=== PATIENT | male | born 1960 | race Caucasian/White ===

== ENCOUNTER 2016-12-02 23:32 | Emergency (ER) | payer SELFPAY ==
[~2016-12-02] VITALS: Ht 177.8 cm; Wt 63.5 kg
[2016-12-02] MEDS ORDERED: 0.9 % SODIUM CHLORIDE 10 ML DISP.SYRIN. IV PRN (23:45)
[2016-12-02] MEDS ORDERED: IV NORMAL SALINE 1,000ML 1,000 ML IV SCH (23:45)
--- NOTE | 2016-12-02 23:57 | PHYS DOC ---
Past History Past Medical History: CAD, Hypertension, Lung Disease Additional Past Medical Histor: he has suffered from anaphylaxis, sepsis Additional Past Surgical Histo: hernia repair, local excision and drainage of a infected abscess, tracheost Smoking: Cigarettes, Greater than 1 pack/day Alcohol Use: Sober Drug Use: None Adult General Chief Complaint Chief Complaint: possible stroke HPI HPI She is a pleasant 56-year-old male with a history of hypertension, hyperlipidemia, prior STEMI with stenting presents with weakness in his right upper and right lower extremity and some difficulty speaking. This patient awoke late this morning around 11 AM noticed some weakness and his upper extremity on the right and mild difficulty speaking. He had a little nausea without headache, no change in vision no change in memory with the symptoms are gone progressively worse over the course of the last 12 hours. She denies any specific trauma, denies any prior history of same. Patient denies any change in medications. ~Smoke 2 packs a day and does not drink alcohol anymore like he did. Patient says that he just felt as the symptoms got progressively worse over the course of the day. Patient denies any back pain, chest pain, shortness of breath, abdominal pain other than the nausea. He denies any vomiting, fevers , chills, URI symptoms or diarrhea. Review of Systems Review of Systems Constitutional: Denies fever or chills [] Eyes: Denies change in visual acuity, redness, or eye pain [] HENT: Denies nasal congestion or sore throat [] Respiratory: Denies cough or shortness of breath [] Cardiovascular: No additional information not addressed in HPI [] GI: Denies abdominal pain vomiting, bloody stools or diarrhea he has some nausea [] : Denies dysuria or hematuria [] Musculoskeletal: Denies back pain or joint pain [] Integument: Denies rash or skin lesions [] Neurologic: Denies headache, he has focal weakness of the right upper and right lower extremity without sensory change. He has difficulty speaking. Endocrine: Denies polyuria or polydipsia [] Physical Exam Physical Exam Vital signs chart on this chart demonstrated a blood pressure 155/93 heart rate was Constitutional: Well developed, well nourished, patient is mildly cachectic nontoxic in appearance. HENT: Normocephalic, atraumatic, bilateral external ears normal, mild dry mucous membranes, no oral exudates, nose normal. [] Eyes: PERRLA, EOMI, conjunctiva normal, no discharge. [] Neck: Normal range of motion, no tenderness, supple, no stridor. [] Cardiovascular:Heart rate regular rhythm, no murmur [] Lungs & Thorax: Bilateral breath sounds clear to auscultation [] Abdomen: Bowel sounds normal, soft, no tenderness, no masses, no pulsatile masses. [] Skin: Warm, dry, no erythema, no rash. [] Back: No tenderness, no CVA tenderness. [] Extremities: No tenderness, no cyanosis, no clubbing, ROM intact, no edema. [] Neurologic: Alert and oriented X 3, normal sensory function, no focal deficits noted. he demonstrates weakness in the right upper and right lower extremity. He has some ataxia and that right upper and right lower extremity as well. He does demonstrate some dysarthria [] Psychologic: Affect normal, judgement normal, mood normal. [] This patient's stroke scale on upon arrival was scored a 6 as found below 1a. Level of consciousness: 0 = Alert; keenly responsive. 1 = Not alert; but arousable by minor stimulation to obey, answer, or respond. 2 = Not alert; requires repeated stimulation to attend, or is obtunded and requires strong or painful stimulation to make movements (not stereotyped). 3 = Responds only with reflex motor or autonomic effects or totally unresponsive , flaccid, and areflexic. 1b. LOC questions: 0 = Answers both questions correctly. 1 = Answers one question correctly. 2 = Answers neither question correctly. 1c. LOC commands: 0 = Performs both tasks correctly. 1 = Performs one task correctly. 2 = Performs neither task correctly. 2. Best gaze: 0 = Normal. 1 = Partial gaze palsy; gaze is abnormal in one or both eyes, but forced deviation or total gaze paresis is not present. 2 = Forced deviation, or total gaze paresis not overcome by the oculocephalic maneuver. 3. Visual: 0 = No visual loss. 1 = Partial hemianopia. 2 = Complete hemianopia. 3 = Bilateral hemianopia (blind including cortical blindness). 4. Facial palsy: 0 = Normal symmetrical movements. 1 = Minor paralysis (flattened nasolabial fold, asymmetry on smiling). 2 = Partial paralysis (total or near-total paralysis of lower face). 3 = Complete paralysis of one or both sides (absence of facial movement in the upper and lower face). 5. Motor arm: 0 = No drift; limb holds 90 (or 45) degrees for full 10 seconds. 1 = Drift; limb holds 90 (or 45) degrees, but drifts down before full 10 seconds ; does not hit bed or other support. 2 = Some effort against gravity; limb cannot get to or maintain (if cued) 90 ( or 45) degrees, drifts down to bed, but has some effort against gravity. 3 = No effort against gravity; limb falls. 4 = No movement. UN = Amputation or joint fusion, explain: 5a. Left arm 5b. Right arm 1 6. Motor le = No drift; leg holds 30-degree position for full 5 seconds. 1 = Drift; leg falls by the end of the 5-second period but does not hit bed. 2 = Some effort against gravity; leg falls to bed by 5 seconds, but has some effort against gravity. 3 = No effort against gravity; leg falls to bed immediately. 4 = No movement. UN = Amputation or joint fusion, explain: 6a. Left leg 6b. Right leg 1 7. Limb ataxia: 0 = Absent. 1 = Present in one limb. 2 = Present in two limbs. UN = Amputation or joint fusion 8. Sensory: 0 = Normal; no sensory loss. 1 = Mrtx-fu-ncwbfjer sensory loss; patient feels pinprick is less sharp or is dull on the affected side; or there is a loss of superficial pain with pinprick , but patient is aware of being touched. 2 = Severe to total sensory loss; patient is not aware of being touched in the face, arm, and leg. 9. Best language: 0 = No aphasia; normal. 1 = Lclt-qg-ycicdeyk aphasia; some obvious loss of fluency or facility of comprehension, without significant limitation on ideas expressed or form of expression. Reduction of speech and/or comprehension, however, makes conversation about provided materials difficult or impossible. For example, in conversation about provided materials, examiner can identify picture or naming card content from patient's response. 2 = Severe aphasia; all communication is through fragmentary expression; great need for inference, questioning, and guessing by the listener. Range of information that can be exchanged is limited; listener carries burden of communication. Examiner cannot identify materials provided from patient response. 3 = Mute, global aphasia; no usable speech or auditory comprehension. 10. Dysarthria: 0 = Normal. 1 = Jymy-dk-ewpwdfyw dysarthria; patient slurs at least some words and, at worst , can be understood with some difficulty. 2 = Severe dysarthria; patient's speech is so slurred as to be unintelligible in the absence of or out of proportion to any dysphasia, or is mute/anarthric. UN = Intubated or other physical barrier, explain: 11. Extinction and inattention (formerly neglect): 0 = No abnormality. 1 = Visual, tactile, auditory, spatial, or personal inattention or extinction to bilateral simultaneous stimulation in one of the sensory modalities. 2 = Profound justa-inattention or extinction to more than one modality; does not recognize own hand or orients to only one side of space. Current Patient Data Vital Signs Vital Signs Date Time Temp Pulse Resp B/P (MAP) Pulse Ox O2 Delivery O2 Flow Rate FiO2 12/02/16 23:50 98.2 56 155/93 (113) 95 Room Air Vital Signs Date Time Temp Pulse Resp B/P (MAP) Pulse Ox O2 Delivery O2 Flow Rate FiO2 12/02/16 23:50 98.2 56 155/93 (113) 95 Room Air Lab Results Laboratory Tests Test 12/02/16 23:52 White Blood Count 9.5 x10^3/uL (4.0-11.0) Red Blood Count 4.39 x10^6/uL (4.30-5.70) Hemoglobin 13.1 g/dL (13.0-17.5) Hematocrit 39.2 % (39.0-53.0) Mean Corpuscular Volume 89 fL (79-100) Mean Corpuscular Hemoglobin 30 pg (25-35) Mean Corpuscular Hemoglobin Concent 34 g/dL (31-37) Red Cell Distribution Width 14.4 % (11.5-14.5) Platelet Count 207 x10^3/uL (140-400) Neutrophils (%) (Auto) 61 % (31-73) Lymphocytes (%) (Auto) 28 % (24-48) Monocytes (%) (Auto) 7 % (0-9) Eosinophils (%) (Auto) 3 % (0-3) Basophils (%) (Auto) 1 % (0-3) Neutrophils # (Auto) 5.8 x10^3uL (1.8-7.7) Lymphocytes # (Auto) 2.7 x10^3/uL (1.0-4.8) Monocytes # (Auto) 0.7 x10^3/uL (0.0-1.1) Eosinophils # (Auto) 0.3 x10^3/uL (0.0-0.7) Basophils # (Auto) 0.1 x10^3/uL (0.0-0.2) EKG EKG [] EKG timed 11:49 PM 12/02/[address] Dowd demonstrates normal sinus rhythm with frequent PVCs patient has a Q-wave in lead 1 which is likely secondary to his old lateral infarct are no new changes consistent with acute coronary ischemia. Radiology/Procedures Radiology/Procedures [] Course & Med Decision Making Course & Med Decision Making Pertinent Labs and Imaging studies reviewed. (See chart for details) Impression presents with strokelike symptoms that began about 11 AM this morning. It is now 11 PM this 12 are appear to time puts him outside the window necessary to treat him acutely with TPA. That is the only contra indication at this time is the duration of symptoms. Patient's stroke scale on arrival was 6 based on initial presentation and symptoms. Swallow study was completed by nursing staff at the bedside. Patient CT scan read at approximately 11:50 PM by radiology and reviewed by me demonstrated no occult bleed, edema, or other mass lesion in the brain. Patient EKG although abnormal was not showing any signs of ischemia. Patient will need to be admitted to the hospital time is now 11:55 PM Gas System Operator note: call specialist physician patient initially at 12:02 AM Gas System Operator called at of the service internal medicine service Consult called back at all back at 1204 AM Discussed the case I presented and they agreed with admission. But he asked that I transfer this patient to [facility] to arrange MRI evaluation and neurology consultation Only then that I realize after speaking with the on-call physician that I should 've been speaking to Dr. Peralta as this is one of his patients. Disposition would still be the same need for an MRI and emergent echocardiogram is very appropriate Gas System Operator note: Internal medicine physician forest economics professor Dr. Batista Gas System Operator called at of the service call the service initially at 12:15 AM Consult called back at 12:55 am Discussed the case I presented and they agreed with admission. Time of acceptance 12:55 a.m. My differential includes but not limited to: Neurally mediated vasovagal syncope, situational syncope, cardiac sinus syncope , orthostatic hypertension, medications, psychiatric interventions, neurologic syncope, cardiogenic syncopal B, to include organic heart disease congestive heart failure, cardiac dysrhythmia, seizure disorder, stroke or transient ischemic attack, bradycardia dysrhythmias, tachycardia dysrhythmias, PT, V. fib V. fib, cardiac abnormalities like first degree secondary third-degree AV blocks , prolonged QT, hypertrophic Matthew myopathy, severe pulmonic stenosis, pulmonary arterial hypertension, atrial myxomas, aortic stenosis, valvular failure, alcohol consumption, adrenal insufficiency, drug effects from things like antidepressants, antihypertensive agents like beta blockers, vasodilators including calcium channel blockers and nitrates, autonomic insufficiency. Because of patient's need for further imaging and evaluation by a neurologist he 'll need to be transferred to [facility] for these other imaging modalities. Completed. Patient's initial CBC is normal and reviewed by me Dr. Dowd []I spent approximately 45-50 minutes working and engaged directly in the patient care providing critical care evaluation this includes but not limited to time spent engaged in work directly related to the individual patients care. I spent time at the bedside, reviewing test results, discussing the case with staff, documenting the medical record and time spent with EMS discussing specific treatment issues when the patient presented and during his evaluation. Dragon Disclaimer Dragon Disclaimer This chart was dictated in whole or in part using Voice Recognition software in a busy, high-work load, and often noisy Emergency Department environment. It may contain unintended and wholly unrecognized errors or omissions. Departure Departure: Impression: Primary Impression: Stroke Additional Impression: Hypertension Disposition: XFER SHT-TRM HOSP Condition: GUARDED Problem Qualifiers JAIME DOWD MD Dec 02, 2016 23:57
[2016-12-03 00:04] LABS: BASO # 0.1 x10^3/uL (0.0-0.2); BASO % 1 % (0-3); EOS # 0.3 x10^3/uL (0.0-0.7); EOS % 3 % (0-3); HEMATOCRIT 39.2 % (39.0-53.0); HEMOGLOBIN 13.1 g/dL (13.0-17.5); LYMPH # 2.7 x10^3/uL (1.0-4.8); LYMPH % 28 % (24-48); MEAN CORPUSCULAR HEMOGLOBIN 30 pg (25-35); MEAN CORPUSCULAR HGB CONC 34 g/dL (31-37); MEAN CORPUSCULAR VOLUME 89 fL (79-100); MONO # 0.7 x10^3/uL (0.0-1.1); MONO % 7 % (0-9); NEUT # 5.8 x10^3uL (1.8-7.7); NEUT % 61 % (31-73); PLATELET COUNT 207 x10^3/uL (140-400); RED BLOOD COUNT 4.39 x10^6/uL (4.30-5.70); RED CELL DISTRIBUTION WIDTH 14.4 % (11.5-14.5); WHITE BLOOD COUNT 9.5 x10^3/uL (4.0-11.0)
--- NOTE | 2016-12-03 00:14 | RAD ---
INDICATION: [id number] Stroke protocol: Right sided weakness, difficulty concentrating, confusion tonight. No priors. COMPARISON: None. TECHNIQUE: Axial CT images obtained through the head without intravenous contrast. One or more of the following individualized dose reduction techniques were utilized for this examination: 1. Automated exposure control; 2. Adjustment of the mA and/or kV according to patient size; 3. Use of iterative reconstruction technique. FINDINGS: No intracranial hemorrhage. No midline shift. Basal cisterns patents. Ventricles and sulci are globally prominent. No acute osseous abnormality. Orbits and paranasal sinuses unremarkable. Scattered foci of low attenuation within the white matter. IMPRESSION: 1. No acute intracranial hemorrhage. 2. Scattered regions of low attenuation within the white matter. Non-specific in nature but frequently secondary to small vessel ischemic disease. Some other possible causes include sequela of migraine or demyelination. If further clarification is desired MRI could be helpful to help determine acuity. 3. Prominence of ventricles and sulci which is frequently secondary to age related volume loss. 4. Probable old lacunar infarct right frontal region. Report called to ER at 12:09 AM on date of exam Electronically signed by: Philipp Orr MD (12/03/2016 12:11 AM) [facility]
[2016-12-03 00:27] LABS: ALBUMIN/GLOBULIN RATIO 0.7 (1.0-1.7); CALCIUM 8.6 mg/dL (8.5-10.1); MAGNESIUM 1.9 mg/dL (1.8-2.4); POTASSIUM 3.5 mmol/L (3.5-5.1); TOTAL BILIRUBIN 0.4 mg/dL (0.2-1.0); TOTAL PROTEIN 7.5 g/dL (6.4-8.2)
[2016-12-03] MEDS ORDERED: LABETALOL 100 MG/20 ML VIAL. IV ONE (00:33)
[2016-12-03] MEDS ORDERED: LABETALOL 20 MG/4 ML DISP.SYRIN. IVP ONE ×3 (00:45→02:45)
[2016-12-03 01:06] LABS: BILIRUBIN,URINE NEG (NEG); CLARITY,URINE CLEAR; COLOR,URINE STRAW; GLUCOSE,URINE NEG (NEG); NITRITE,URINE NEG (NEG); UROBILINOGEN,URINE 0.2 mg/dL (0.2 mg/dL)
[2016-12-03 01:07] LABS: AMORPHOUS SEDIMENT,UR PRESENT /HPF; BACTERIA,URINE FEW /HPF (0-FEW); RBC,URINE OCC /HPF (0-2); SQUAMOUS EPITHELIAL CELL,UR OCC /LPF; WBC,URINE 0 /HPF (0-4)
[2016-12-03 01:39] VITALS: BP 176/96
--- NOTE | 2016-12-03 09:32 | RAD ---
AP portable chest radiograph December 02, 2016 Clinical History: Right-sided weakness. An AP portable erect digital radiograph of the chest was obtained. No previous studies are available for comparison. The cardiac silhouette is borderline enlarged. The thoracic aorta is tortuous. No acute pulmonary infiltrate is seen. No pleural effusion or pneumothorax is noted. Degenerative changes are seen involving the thoracic spine and both shoulders. Impression: No acute abnormality is seen.
--- NOTE | 2016-12-06 07:01 | EKG ---
[address] [address] Test Date: 2016-12-02 Test Time: 23:49:51 Pat Name: MARKO PEREZ Department: Room: Gender: M Generalist: KVNG : 1960 Requested By: JAIME BEAVER Order Number: [id number] Reading MD: Measurements Intervals [place] Rate: 65 P: IN: QRS: 130 QRSD: 96 T: 169 QT: 446 QTc: 465 Interpretive Statements ATRIAL FIBRILLATION VENTRICULAR PREMATURE COMPLEX(ES), TRIGEMINY ABNORMAL RIGHT AXIS DEVIATION QRS(T) CONTOUR ABNORMALITY CONSISTENT WITH HIGH LATERAL INFARCT AGE UNDETERMINED T ABNORMALITY IN INFERIOR LEADS RI6.01 Unconfirmed report No previous ECG available for comparison
== END 2016-12-03 01:45 | disposition short-term general hospital (02) ==
LOC: ER 23:32
DX: I63.9 Cerebral infarction, unspecified (principal); I10 Essential (primary) hypertension; I25.10 Atherosclerotic heart disease of native coronary artery without angina pectoris; F17.210 Nicotine dependence, cigarettes, uncomplicated; E78.5 Hyperlipidemia, unspecified
CPT/HCPCS: 36415; 70450; 71010; 80053; 81001; 82553; 83735; 84443; 84484; 85025; 96361; 96374; 96376; 99291; J3490; J7030

== ENCOUNTER 2018-12-13 10:59 | Emergency (ER) | payer SELFPAY ==
[~2018-12-13] VITALS: Ht 177.8 cm; Wt 63.5 kg
[2018-12-13 11:16] VITALS: BP 146/80
[2018-12-13] MEDS ORDERED: IV NORMAL SALINE 1,000ML 1,000 ML IV SCH (11:31)
--- NOTE | 2018-12-13 11:36 | PHYS DOC ---
Past History Past Medical History: CAD, Hypertension, Lung Disease, Stroke Additional Past Medical Histor: he has suffered from anaphylaxis, sepsis Additional Past Surgical Histo: hernia repair, local excision and drainage of a infected abscess, tracheost Smoking: Cigarettes, Greater than 1 pack/day Alcohol Use: Sober Drug Use: Marijuana Adult General Chief Complaint Chief Complaint: RAPID HEART RATE [place] [employer] HPI Patient is a 58-year-old male with right thoracic back pain for the past 2 days. It is better today. Patient was being evaluated for this by their primary care team who noted some ST elevations on the EKG along with a tachycardia and so he was sent for further evaluation. Patient reports the pain is improved today. Family reports he has a previous history of aspiration pneumonia with a were concerned about. Patient has not had any worsening cough. No nausea or vomiting. No worsening with exertion. No fevers. Currently there is no pain.[] Review of Systems Review of Systems Constitutional: Denies fever or chills [] Eyes: Denies change in visual acuity, redness, or eye pain [] HENT: Denies nasal congestion or sore throat [] Respiratory: Denies cough or shortness of breath [] Cardiovascular: No additional information not addressed in HPI [] GI: Denies abdominal pain, nausea, vomiting, bloody stools or diarrhea [] : Denies dysuria or hematuria [] Musculoskeletal: Denies back pain or joint pain [] Integument: Denies rash or skin lesions [] Neurologic: Denies headache, focal weakness or sensory changes [] Endocrine: Denies polyuria or polydipsia [] All other systems were reviewed and found to be within normal limits, except as documented in this note. Allergies Allergies Allergies Coded Allergies Type Severity Reaction Last Updated Verified lisinopril Allergy Unknown 12/03/16 Yes Physical Exam Physical Exam Constitutional: Well developed, well nourished, no acute distress, non-toxic appearance. [] HENT: Normocephalic, atraumatic, bilateral external ears normal, oropharynx moist, no oral exudates, nose normal. [] Eyes: PERRLA, EOMI, conjunctiva normal, no discharge. [] Neck: Normal range of motion, no tenderness, supple, no stridor. [] Cardiovascular:Heart rate is tachycardic with a regular rhythm, no murmur [] Lungs & Thorax: Bilateral breath sounds clear to auscultation [] Abdomen: Bowel sounds normal, soft, no tenderness, no masses, no pulsatile masses. [] Skin: Warm, dry, no erythema, no rash. [] Back: No tenderness, no CVA tenderness. [] Extremities: No tenderness, no cyanosis, no clubbing, ROM intact, no edema. [] Neurologic: Alert and oriented X 3, normal motor function, normal sensory function, no focal deficits noted. [] Psychologic: Affect normal, judgement normal, mood normal. [] Current Patient Data Vital Signs Vital Signs Date Time Temp Pulse Resp B/P (MAP) Pulse Ox O2 Delivery O2 Flow Rate FiO2 12/13/18 11:16 101 16 96 Room Air EKG EKG [] Radiology/Procedures Radiology/Procedures PROCEDURE: CT ANGIOGRAPHY CHEST Chest CTA History: Right flank pain, elevated d-dimer, tachycardia Technique: After bolus of intravenous contrast, CT imaging was performed of the chest. Multiplanar reconstruction images to include MIP reconstruction images are submitted. Exposure: One or more of the following individualized dose reduction techniques were utilized for this examination: 1. Automated exposure control 2. Adjustment of the mA and/or kV according to patient size 3. Use of iterative reconstruction technique. Comparison: None Findings: No pulmonary embolism is identified. There is mild right lower lobe infiltrate near the lung base of the periphery also mild dependent atelectasis left lower lobe near the base and minimally of the lingula. There is centrilobular emphysema and also paraseptal emphysema with upper zone predominance. Exam was not protocoled for specific evaluation of thoracic aorta. Aortic root is ectatic about 4 cm. Tubular ascending thoracic aorta measures about 3.5 cm, no convincing dissection flap of the thoracic aorta. There is shared origin of the brachiocephalic and left common carotid arteries. There is a broad-based focus of protuberance projecting inferiorly from the distal aortic arch about 1.1 cm beyond the expected lumen wall, measuring about 3 cm transverse. There is hypodense lesion of the visualized right kidney about 2.1 cm density measurements of a cyst. There is also superior hypodense lesion of the left kidney about 2.9 cm also with characteristics of a cyst. Barely included, mild right hydronephrosis difficult to exclude by this exam. There is some coronary calcification. There are multiple pancreatic calcifications, degree of proximal pancreatic ductal dilatation. 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 There are some nonspecific right hilar lymph nodes, largest about 1.1 cm short axis dimension. There is superior L1 compression deformity and to lesser degree superiorly of T12 and T11 of uncertain chronicity. There is inferior thoracic spondylosis. Impression: 1. No pulmonary embolism is identified. There is mild right lower lobe infiltrate near the base. There is emphysema. 2. There is some coronary calcification. 3. There is ectatic aortic root about 4 cm. There is broad based dilatation at the undersurface of the thoracic aortic arch at common site of ductus diverticulum. 4. There are multiple calcifications of the pancreas, probably due to sequela of chronic pancreatitis. Mild right hydronephrosis is difficult to exclude on this exam. There are bilateral renal cysts. 5. 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 6. There is nonspecific right hilar lymphadenopathy. 7. There is age indeterminate compression deformity of T11, T12, L1. Correlation with any point tenderness is advised.[] Course & Med Decision Making Course & Med Decision Making Pertinent Labs and Imaging studies reviewed. (See chart for details) ED course: Patient arrived, was placed in bed, and tolerated exam well. He was given IV fluids which improved his heart rate. He had an initial x-ray obtained, and then was able to be transported to and from radiology for a CAT scan due to the elevated d-dimer. He did the CT scan well. Return of laboratory and imaging studies, these were discussed with the patient and family who voiced understanding. All questions were answered. He was discharged in improved condition. Medical decision making: Patient appears to have right lower lobe infiltrate. No evidence of pulmonary embolism, no evidence of acute coronary syndrome. His heart rate improved with IV fluids. Based on the curb 65 criteria he does not meet admission criteria at this time. Do not see any evidence of this being an acute coronary syndrome. No evidence of sepsis. Will start with oral outpatient antibiotics and have patient follow-up with his primary care physician.[] Dragon Disclaimer Dragon Disclaimer This electronic medical record was generated, in whole or in part, using a voice recognition dictation system. Departure Departure: Impression: Primary Impression: Pneumonia Disposition: HOME, SELF-CARE Condition: IMPROVED Referrals: WALT GUZMAN (PCP) Follow-up in 2 days Patient Instructions: Aspiration Pneumonia, Pneumonia, Adult Additional Instructions: Drink plenty of fluids. Take the medication as prescribed. Return to the ER if worsening difficulty breathing or any other concerns. Scripts Meloxicam (MELOXICAM) 7.5 Mg Tablet 7.5 MG PO DAILY for PAIN, #20 TAB Prov: ANTONIO VIGIL DO 12/13/18 Albuterol Sulfate (VENTOLIN HFA INHALER) 18 Gm Hfa.aer.ad 2 PUFF IH PRN Q4HRS PRN for FOR ASTHMA, #1 INHALER 0 Refills Prov: ANTONIO VIGIL DO 12/13/18 Clindamycin Hcl (CLINDAMYCIN HCL) 300 Mg Capsule 1 CAP PO QID for pneumonia, #40 CAP Prov: ANTONIO VIGIL DO 12/13/18 Problem Qualifiers Primary Impression: Pneumonia Pneumonia type: due to unspecified organism Laterality: right Lung l ocation: lower lobe of lung Qualified Codes: J18.1 - Lobar pneumonia, unspecified organism ANTONIO VIGIL DO Dec 13, 2018 11:36
[2018-12-13] MEDS ORDERED: ASPIRIN 81 MG TAB.CHEW PO ONE (11:45)
[2018-12-13] MEDS ORDERED: ONDANSETRON PF 4 MG/2 ML VIAL. ONE (11:58)
[2018-12-13 11:59] LABS: BASO % 0 % (0-3); EOS # 0.1 x10^3/uL (0.0-0.7); EOS % 1 % (0-3); HEMOGLOBIN 17.2 g/dL (13.0-17.5); LYMPH # 1.3 x10^3/uL (1.0-4.8); LYMPH % 11 % (24-48); MEAN CORPUSCULAR HEMOGLOBIN 33 pg (25-35); MEAN CORPUSCULAR HGB CONC 34 g/dL (31-37); MEAN CORPUSCULAR VOLUME 95 fL (79-100); MONO # 0.9 x10^3/uL (0.0-1.1); MONO % 8 % (0-9); NEUT # 8.9 x10^3uL (1.8-7.7); NEUT % 79 % (31-73); PLATELET COUNT 199 x10^3/uL (140-400); RED BLOOD COUNT 5.25 x10^6/uL (4.30-5.70); RED CELL DISTRIBUTION WIDTH 13.9 % (11.5-14.5); WHITE BLOOD COUNT 11.3 x10^3/uL (4.0-11.0)
--- NOTE | 2018-12-13 12:04 | RAD ---
EXAM: Chest, 2 views. HISTORY: Right-sided back pain. COMPARISON: 12/02/2016 FINDINGS: 2 views of chest are obtained. There is slight increased right lower lobe interstitial opacity likely due to atelectasis or chronic interstitial change. There is mild right apical and infrahilar pleural-parenchymal scarring. There is no consolidation, pleural effusion or pneumothorax. The heart is normal in size. There is hyperinflation likely due to inspiratory effort or emphysema. IMPRESSION: 1. Suspected right lower lobe atelectasis or chronic interstitial changes. 2. Hyperinflation due to inspiratory effort or emphysema. Electronically signed by: Leah Phillips MD (12/13/2018 12:02 PM) [place] [id number]
[2018-12-13 12:07] LABS: ALBUMIN 3.5 g/dL (3.4-5.0); ALBUMIN/GLOBULIN RATIO 0.9 (1.0-1.7); CALCIUM 9.2 mg/dL (8.5-10.1); GFR 76.5; MAGNESIUM 1.8 mg/dL (1.8-2.4); POTASSIUM 3.4 mmol/L (3.5-5.1); TOTAL PROTEIN 7.2 g/dL (6.4-8.2)
[2018-12-13] MEDS ORDERED: ONDANSETRON PF 4 MG/2 ML VIAL. IV ONE (12:15)
[2018-12-13] MEDS ORDERED: IOHEXOL 350 MG/ML 100 ML VIAL. IV ONE (12:45)
[2018-12-13 13:25] LABS: BACTERIA,URINE 0 /HPF (0-FEW); BILIRUBIN,URINE NEG (NEG); CLARITY,URINE HAZY; COLOR,URINE YELLOW; GLUCOSE,URINE 500 mg/dL (NEG); NITRITE,URINE NEG (NEG); SQUAMOUS EPITHELIAL CELL,UR OCC /LPF; UROBILINOGEN,URINE 1 mg/dL (0.2 mg/dL); WBC,URINE OCC /HPF (0-4)
--- NOTE | 2018-12-13 13:25 | RAD ---
Chest CTA History: Right flank pain, elevated d-dimer, tachycardia Technique: After bolus of intravenous contrast, CT imaging was performed of the chest. Multiplanar reconstruction images to include MIP reconstruction images are submitted. Exposure: One or more of the following individualized dose reduction techniques were utilized for this examination: 1. Automated exposure control 2. Adjustment of the mA and/or kV according to patient size 3. Use of iterative reconstruction technique. Comparison: None Findings: No pulmonary embolism is identified. There is mild right lower lobe infiltrate near the lung base of the periphery also mild dependent atelectasis left lower lobe near the base and minimally of the lingula. There is centrilobular emphysema and also paraseptal emphysema with upper zone predominance. Exam was not protocoled for specific evaluation of thoracic aorta. Aortic root is ectatic about 4 cm. Tubular ascending thoracic aorta measures about 3.5 cm, no convincing dissection flap of the thoracic aorta. There is shared origin of the brachiocephalic and left common carotid arteries. There is a broad-based focus of protuberance projecting inferiorly from the distal aortic arch about 1.1 cm beyond the expected lumen wall, measuring about 3 cm transverse. There is hypodense lesion of the visualized right kidney about 2.1 cm density measurements of a cyst. There is also superior hypodense lesion of the left kidney about 2.9 cm also with characteristics of a cyst. Barely included, mild right hydronephrosis difficult to exclude by this exam. There is some coronary calcification. There are multiple pancreatic calcifications, degree of proximal pancreatic ductal dilatation. 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 There are some nonspecific right hilar lymph nodes, largest about 1.1 cm short axis dimension. There is superior L1 compression deformity and to lesser degree superiorly of T12 and T11 of uncertain chronicity. There is inferior thoracic spondylosis. Impression: 1. No pulmonary embolism is identified. There is mild right lower lobe infiltrate near the base. There is emphysema. 2. There is some coronary calcification. 3. There is ectatic aortic root about 4 cm. There is broad based dilatation at the undersurface of the thoracic aortic arch at common site of ductus diverticulum. 4. There are multiple calcifications of the pancreas, probably due to sequela of chronic pancreatitis. Mild right hydronephrosis is difficult to exclude on this exam. There are bilateral renal cysts. 5. 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 6. There is nonspecific right hilar lymphadenopathy. 7. There is age indeterminate compression deformity of T11, T12, L1. Correlation with any point tenderness is advised. Electronically signed by: Nahun Johnson MD (12/13/2018 1:22 PM) [id number]
[2018-12-13] MEDS ORDERED: ALBU2.5V8 IH (13:42)
[2018-12-13] MEDS ORDERED: MELO7.5T29 PO (13:42)
[2018-12-13] MEDS ORDERED: CLIN300C8 PO (13:42)
--- NOTE | 2018-12-13 14:20 | EKG ---
[address] [address] Test Date: 2018-12-13 Test Time: 11:13:05 Pat Name: MARKO PEREZ Department: Room: Gender: M [employer] Work[employer]: : [id number] Requested By: ANTONIO VIGIL Order Number: [id number] Reading MD: Bruce Jiang MD Measurements Intervals [place] Rate: 106 P: -73 NC: 98 QRS: 41 QRSD: 90 T: 38 QT: 336 QTc: 448 Interpretive Statements SINUS TACHYCARDIA Electronically Signed On 12-14-2018 16:03:14 CDT by Bruce Jiang MD
== END 2018-12-13 13:57 | disposition home or self-care (01) ==
LOC: ER 10:59
DX: J18.1 Lobar pneumonia, unspecified organism (principal); M54.6 Pain in thoracic spine; I25.10 Atherosclerotic heart disease of native coronary artery without angina pectoris; I10 Essential (primary) hypertension; Z86.73 Personal history of transient ischemic attack (TIA), and cerebral infarction without residual deficits; F17.210 Nicotine dependence, cigarettes, uncomplicated; Z88.8 Allergy status to other drugs, medicaments and biological substances
CPT/HCPCS: 36415; 71046; 71275; 80053; 81001; 83690; 83735; 83880; 84484; 85025; 85379; 85610; 85730; 93005; 96374; 99285; J2405; Q9967; J7030